=== PATIENT | female | born 1935 | race Caucasian/White ===

== ENCOUNTER 2020-09-13 10:54 | Emergency (ER) | payer MEDICARE, OTHER ==
[~2020-09-13 10:54] MED LIST: ASPIRIN CHEWABL81 MG PO; ASPIRIN81 MG PO; CLONIDINE HCL0.1 MG PO; COREG 3.125M3.125 MG PO; COZAAR100 MG PO; GLUCOPHAGE 500500 MG PO; ISOSORBIDE MONO60 MG PO; LEVEMIR 10100 UNITS/ SC; LEVOTHYROXINE25 MCG PO; LIPITOR TAB 1010 MG PO; NITROSTAT0.4 MG SL; NORVASC 5 MG TAB5 MG PO; PLAVIX 75 MG TA75 MG PO; TYLENOL 325MG325 MG PO; VITAMIN D 11000 UNIT PO
[2020-09-13 11:52] LABS: HEMOGLOBIN 15.5 gm/dl (12.3-15.3); RED BLOOD COUNT 4.87 M/UL (4.00-5.10); WHITE BLOOD COUNT 8.2 K/UL (4.5-11.0)
[2020-09-13 12:28] LABS: BUN/CREATININE RATIO 12 (0-10)
== END 2020-09-13 15:30 | disposition home or self-care (01) ==
LOC: ER1 10:54
PROVIDERS: Physician Assistant
DX: I12.9 Hypertensive chronic kidney disease with stage 1 through stage 4 chronic kidney disease, or unspecified chronic kidney disease (principal); N18.9 Chronic kidney disease, unspecified; E11.22 Type 2 diabetes mellitus with diabetic chronic kidney disease; I48.20 Chronic atrial fibrillation, unspecified; I25.2 Old myocardial infarction; Z90.710 Acquired absence of both cervix and uterus; Z79.01 Long term (current) use of anticoagulants; Z79.02 Long term (current) use of antithrombotics/antiplatelets; Z88.5 Allergy status to narcotic agent
CPT/HCPCS: 70450; 71045; 80053; 81001; 82550; 82553; 83874; 84439; 84443; 84484; 85025; 93005; 99285; J7030